=== PATIENT | male | born 1990 | race Caucasian/White ===

== ENCOUNTER 2020-08-11 13:44 | Emergency (ER) | payer OTHER ==
[2020-08-11 13:50] VITALS: BP 131/87; PULSE 60; RESP 18; TEMP 97.7
[2020-08-11] MEDS ORDERED: PROPARACAINE 0.5% OPHTH DROPS 15 ML BTL LEFT EYE STA (14:16)
[2020-08-11] MEDS ORDERED: FLUORESCEIN STRIPS 1 MG STRIP LEFT EYE ONE (14:16)
--- NOTE | 2020-08-11 14:56 | ED ---
Eye Problem HPI - General Chief complaint: Eye Problems Stated complaint: [facility] - rt eye injury Time Seen by Provider: 08/11/20 14:05 Source: patient Mode of arrival: ambulatory Limitations: no limitations - History of Present Illness Initial comments: 30-year-old male presents to the emergency department with a chief complaint of right eye pain that occurred one hour ago. Patient reports she potentially scratched his right eye. He does not wear contacts. Tetanus is up-to-date. Reports pain/irritation with blinking and clear discharge. Patient denies any pain with extraocular eye movements. He denies any blurry vision. Denies any periorbital erythema or edema. - Related Data Previous Rx's Medication Instructions Recorded Erythromycin Ophth Oint [Romycin 1 applic BOTH EYES QID #1 bottle 08/11/20 Ophth Oint] Allergies Allergy/AdvReac Type Severity Reaction Status Date / Time iodine Allergy Anaphylaxis Verified 08/11/20 13:50 Review of Systems ROS Statement: Those systems with pertinent positive or pertinent negative responses have been documented in the HPI. ROS Other: All systems not noted in ROS Statement are negative. Past Medical History Past Medical History: No Reported History History of Any Multi-Drug Resistant Organisms: None Reported Past Surgical History: No Surgical Hx Reported Past Psychological History: Anxiety Smoking Status: Current every day smoker Past Alcohol Use History: Occasional Past Drug Use History: None Reported General Exam Limitations: no limitations General appearance: alert, in no apparent distress Head exam: Present: atraumatic, normocephalic, normal inspection Eye exam: Present: normal appearance, PERRL, EOMI, conjunctival injection (Right.). Absent: nystagmus, other (No pain with extraocular movements. Negative Rodolfo sign) Pupils: Present: normal accommodation ENT exam: Present: normal exam, normal oropharynx, mucous membranes moist Neck exam: Present: normal inspection, full ROM. Absent: tenderness, lymphadenopathy Respiratory exam: Present: normal lung sounds bilaterally. Absent: respiratory distress, wheezes, rales, rhonchi, stridor Cardiovascular Exam: Present: regular rate, normal rhythm, normal heart sounds. Absent: systolic murmur, diastolic murmur Extremities exam: Present: normal inspection, full ROM, normal capillary refill. Absent: tenderness, pedal edema, joint swelling Back exam: Present: normal inspection, full ROM. Absent: tenderness, CVA tenderness (R), CVA tenderness (L) Neurological exam: Present: alert, oriented X3 Psychiatric exam: Present: normal affect, normal mood Skin exam: Present: warm, dry, intact, normal color Course Vital Signs 08/11/20 13:48 Temperature 97.7 F Pulse Rate 60 Respiratory 18 Rate Blood Pressure 131/87 O2 Sat by Pulse 100 Oximetry Medical Decision Making - Medical Decision Making 30-year-old male presents to emergency Department with a chief complaint right eye pain. On Physical examination, no signs of periorbital or orbital cellulitis. Tillman lamp examination with foreseen stain reveals a corneal abrasion measuring approximately 5 mm located between 6 and 4:00. Patient will be started on erythromycin ointment. Return parameters were thoroughly discussed the patient is an ascending agreeable. Case discussed with physician. Disposition Clinical Impression: Corneal abrasion Disposition: HOME SELF-CARE Condition: Stable Instructions (If sedation given, give patient instructions): Corneal Abrasion (DC) Additional Instructions: Please return to the Emergency Department if symptoms worsen or any other concerns. Prescriptions: Erythromycin Ophth Oint [Romycin Ophth Oint] 1 applic BOTH EYES QID #1 bottle Is patient prescribed a controlled substance at d/c from ED?: No Referrals: Linda Baez DO [Primary Care Provider] - 1-2 days Time of Disposition: 14:54
== END 2020-08-11 15:07 | disposition home or self-care (01) ==
LOC: EC 13:44
DX: S05.01XA Injury of conjunctiva and corneal abrasion without foreign body, right eye, initial encounter (principal); F17.200 Nicotine dependence, unspecified, uncomplicated; X58.XXXA Exposure to other specified factors, initial encounter
CPT/HCPCS: 99283

== ENCOUNTER 2023-11-09 16:27 | Emergency (ER) | payer BC ==
[2023-11-09 16:33] VITALS: RESP 17; TEMP 97.9
--- NOTE | 2023-11-09 16:35 | ED ---
Chest Pain HPI - General Chief Complaint: Chest Pain Stated Complaint: chest pain,arm numbness Time Seen by Provider: 11/09/23 16:35 Source: patient, RN notes reviewed Mode of arrival: ambulatory Limitations: no limitations - History of Present Illness Initial Comments: This is a 33-year-old male presents emergency department accompanied by his for chief complaint of chest pain and shortness of breath that has been occurring over the past 5 days. Patient states that while he was doing activities today he felt short of breath and he was unable to complete exam. He states that the pain is described as a sharp sensation on the left side of his chest and has had radiation to his left arm. Denies personal history of DVT, blood clotting disorders. Denies current leg swelling, recent prolonged travel or recent surgeries. Denies history of hypertension, diabetes, smoking history - Related Data Home Medications Medication Instructions Recorded Confirmed Acetaminophen Tab [Tylenol Tab] 500 mg PO Q6H PRN 11/09/23 11/09/23 Aspirin EC [Ecotrin Low Dose] 81 mg PO DAILY 11/09/23 11/09/23 Cetirizine HCl [Zyrtec] 10 mg PO DAILY 11/09/23 11/09/23 Multivitamins, Thera [Multivitamin 1 tab PO DAILY 11/09/23 11/09/23 (formulary)] [place]-3/Dha/Epa/Fish Oil [Fish Oil 1 cap PO DAILY 11/09/23 11/09/23 1,000 mg Softgel] Pyridoxine HCl (Vitamin B6) 100 mg PO DAILY 11/09/23 11/09/23 [Vitamin B-6] Allergies Allergy/AdvReac Type Severity Reaction Status Date / Time iodine Allergy Anaphylaxis Verified 11/09/23 16:55 Review of Systems ROS Statement: Those systems with pertinent positive or pertinent negative responses have been documented in the HPI. ROS Other: All systems not noted in ROS Statement are negative. Past Medical History Past Medical History: No Reported History History of Any Multi-Drug Resistant Organisms: None Reported Past Surgical History: No Surgical Hx Reported Past Psychological History: Anxiety Smoking Status: Current every day smoker Past Alcohol Use History: Occasional Past Drug Use History: None Reported General Exam Limitations: no limitations General appearance: alert, in no apparent distress Eye exam: Present: normal appearance, PERRL, EOMI. Absent: scleral icterus, conjunctival injection, periorbital swelling ENT exam: Present: normal exam, mucous membranes moist Neck exam: Present: normal inspection. Absent: tenderness, meningismus, lymphadenopathy Respiratory exam: Present: normal lung sounds bilaterally. Absent: respiratory distress, wheezes, rales, rhonchi, stridor Cardiovascular Exam: Present: regular rate, normal rhythm, normal heart sounds. Absent: systolic murmur, diastolic murmur, rubs, gallop, clicks GI/Abdominal exam: Present: soft, normal bowel sounds. Absent: distended, tenderness, guarding, rebound, rigid Extremities exam: Present: normal inspection, full ROM, normal capillary refill. Absent: tenderness, pedal edema, joint swelling, calf tenderness Back exam: Present: normal inspection Skin exam: Present: warm, dry, intact, normal color. Absent: rash Course Vital Signs 11/09/23 11/09/23 11/09/23 16:30 17:05 17:59 Temperature 97.9 F Pulse Rate 68 63 61 Respiratory 17 17 17 Rate Blood Pressure 134/88 131/95 117/83 O2 Sat by Pulse 100 99 98 Oximetry Chest Pain MDM - MDM Was pt. sent in by a medical professional or institution (, PA, ENGLISH LECTURER, urgent care, hospital, or alf...) When possible be specific @ -No Did you speak to anyone other than the patient for history (EMS, parent, family, police, friend...)? What history was obtained from this source @ -No Did you review nursing and triage notes (agree or disagree)? Why? @ -I reviewed and agree with nursing and triage notes Were old charts reviewed (outside hosp., previous admission, EMS record, old EKG, old radiological studies, urgent care reports/EKG's, alf records)? Report findings @ -No old charts were reviewed Differential Diagnosis (chest pain, altered mental status, abdominal pain women, abdominal pain men, vaginal bleeding, weakness, fever, dyspnea, syncope, headache, dizziness, GI bleed, back pain, seizure, CVA, palpatations, mental health, musculoskeletal)? @ -Differential Chest Pain: Stable Angina, Unstable Angina, STEMI, NSTEMI Aortic Dissection, Pneumothorax, Musculoskeletal, Esophageal Spasm GERD, Cholecystitis, Pancreatitis, Zoster, this is not meant to be an all-inclusive list. EKG interpreted by me (3pts min.). @ -completed at 1641 sinus rhythm with a ventricular rate of 71, AL interval 173, QRS 91, QTc 394. No acute signs of ischemia. X-rays interpreted by me (1pt min.). @ -Chest x-ray no acute cardiopulmonary process or disease CT interpreted by me (1pt min.). @ -None done U/S interpreted by me (1pt. min.). @ -None done What testing was considered but not performed or refused? (CT, X-rays, U/S, labs)? Why? @ -None What meds were considered but not given or refused? Why? @ -None Did you discuss the management of the patient with other professionals (professionals i.e. , PA, ENGLISH LECTURER, lab, RT, psych nurse, social media senior associate, health education coordinator, teacher, safety patrol officer, caseworker intake)? Give summary @ -No Was smoking cessation discussed for >3mins.? @ -No Was critical care preformed (if so, how long)? @ -No Were there social determinants of health that impacted care today? How? (Homelessness, low income, unemployed, alcoholism, drug addiction, transportation, low edu. Level, literacy, decrease access to med. care, half-way, rehab)? @ -No Was there de-escalation of care discussed even if they declined (Discuss DNR or withdrawal of care, Hospice)? DNR status @ -No What co-morbidities impacted this encounter? (DM, HTN, Smoking, COPD, CAD, Cancer, CVA, ARF, Chemo, Hep., AIDS, mental health diagnosis, sleep apnea, morbid obesity)? @ -None Was patient admitted / discharged? Hospital course, mention meds given and route, prescriptions, significant lab abnormalities, going to OR and other pertinent info. @ -33-year-old male with anterior chest wall pain. On examination patient's chest pain is nonreproducible. Vitals are stable. EKG in sinus rhythm. Patient will undergo cardiac workup including laboratory studies and x-ray of the chest. He is in agreement with this plan. CBC and CMP grossly unremarkable, troponin nonelevated less than 0.012, lipase within normal limits, coagulation profile and D-dimer within normal limits. Heart score for Major Cardiac events reveals a history that is slightly suspicious and a normal EKG with an age less than 45 and 1 risk factor of hypercholesterolemia and initial troponin is within normal limits therefore his heart score is 1 point and as a very low score with a very minimal clinical concern for 6-week risk of major adverse cardiac event occurring. Recommend the patient follow-up outpatient with his primary care provider within the next week for further evaluation. He is provided with dose of Toradol in the emergency department to aid in relief. All questions answered at bedside and strict return prior discussed with the patient he is verbalized understanding. Case discussed with Dr. Kohler Undiagnosed new problem with uncertain prognosis? @ -No Drug Therapy requiring intensive monitoring for toxicity (Heparin, Nitro, Insulin, Cardizem)? @ -No Were any procedures done? @ -No Diagnosis/symptom? @ -Chest pain Acute, or Chronic, or Acute on Chronic? @ -Acute Uncomplicated (without systemic symptoms) or Complicated (systemic symptoms)? @ -Uncomplicated Side effects of treatment? @ -No Exacerbation, Progression, or Severe Exacerbation? @ -No Poses a threat to life or bodily function? How? (Chest pain, [place], [place], pneumonia, PE, COPD, DKA, ARF, appy, cholecystitis, CVA, Diverticulitis, Homicidal, Suicidal, threat to staff... and all critical care pts) @ -No Disposition Clinical Impression: Chest pain Disposition: HOME SELF-CARE Condition: Good Instructions (If sedation given, give patient instructions): Chest Pain (ED) Additional Instructions: Return to the emergency department for any new or worsening symptoms. Recommend you schedule follow-up appoint with your primary care provider within the next week for further evaluation. Is patient prescribed a controlled substance at d/c from ED?: No Referrals: Linad Baez DO [Primary Care Provider] - 1-2 days Time of Disposition: 18:11
[2023-11-09 17:06] LABS: Basophils % (A) 1 %; Eosinophils # (A) 0.1 k/uL (0-0.7); Eosinophils % (A) 2 %; HCT 43.5 % (39.0-53.0); HGB 14.6 gm/dL (13.0-17.5); Lymphocytes # (A) 1.5 k/uL (1.0-4.8); Lymphocytes % (A) 33 %; MCHC 33.6 g/dL (31.0-37.0); MCV 92.3 fL (80.0-100.0); Mean Platelet Volume 6.7; Monocytes # (A) 0.3 k/uL (0-1.0); Monocytes % (A) 6 %; Neutrophils # (A) 2.5 k/uL (1.3-7.7); Neutrophils % (A) 56 %; Platelet Count 285 k/uL (150-450); RBC 4.71 m/uL (4.30-5.90); RDW 12.1 % (11.5-15.5); WBC 4.4 k/uL (3.8-10.6)
[2023-11-09 17:17] LABS: ALT 19 U/L (4-49); AST 22 U/L (17-59); African American GFR (CKD) >90 (>60 ml/min/1.73 sqM); Albumin 4.7 g/dL (3.5-5.0); Alkaline Phosphatase 58 U/L (38-126); Anion Gap 9 mmol/L; Blood Urea Nitrogen 12 mg/dL (9-20); Calcium 9.7 mg/dL (8.4-10.2); Carbon Dioxide 26 mmol/L (22-30); Chloride 106 mmol/L (98-107); Glucose 85 mg/dL (74-99); Lipase 102 U/L (23-300); Non-African American GFR(CKD) >90 (>60 ml/min/1.73 sqM); Sodium 141 mmol/L (137-145); Total Bilirubin 0.7 mg/dL (0.2-1.3); Total Protein 7.5 g/dL (6.3-8.2)
--- NOTE | 2023-11-09 17:47 | XR ---
EXAMINATION TYPE: XR chest 2V DATE OF EXAM: 11/09/2023 5:33 PM CLINICAL INDICATION: Male, 33 years old with history of Chest Pain; COMPARISON: None TECHNIQUE: XR chest 2V Frontal view of the chest. FINDINGS: Lungs/Pleura: There is no evidence of pleural effusion, focal consolidation, or pneumothorax. Pulmonary vascularity: Unremarkable. Heart/mediastinum: Cardiomediastinal silhouette is unremarkable. Musculoskeletal: No acute osseous pathology. IMPRESSION: No acute cardiopulmonary disease/process. [facility], , 11/09/2023 5:44 PM
[2023-11-09 17:49] LABS: INR 1.3 (<1.2); Partial Thromboplastin Time 30.7 sec (22.0-30.0); Prothrombin Time 13.9 sec (10.0-12.5)
[2023-11-09 18:02] VITALS: BP 117/83; PULSE 61
[2023-11-09] MEDS: KETOROLAC 15 MG/ML 1 ML VIAL IVP STA (18:09)
== END 2023-11-09 19:45 | disposition home or self-care (01) ==
LOC: EC 16:27
CPT/HCPCS: 36415; 71046; 80053; 83690; 83735; 84484; 85025; 85379; 85610; 85730; 93005; 96374; 99285